=== PATIENT | female | born 1955 | race Caucasian/White ===

== ENCOUNTER 2017-12-08 10:41 | Inpatient (IN) | payer OTHER ==
[2017-12-08] VITALS (11 sets, daily range): BP systolic 115–165; BP diastolic 73–99
[~2017-12-08] VITALS: Ht 165.1 cm; Wt 77.0 kg
[2017-12-08 11:15] LABS: BASOPHILS % (AUTO) 0.4 % (0.0-5.0); EOSINOPHILS % (AUTO) 0.3 % (0.0-8.0); HEMATOCRIT 39.2 % (36-48); MEAN CORPUSCULAR HEMOGLOBIN 28.9 pg (27.0-33.0); MEAN CORPUSCULAR HGB CONC 34.6 g/dL (32.0-36.0); MEAN CORPUSCULAR VOLUME 83.7 fL (79-99); NEUTROPHILS % (AUTO) 83.3 % (40.0-77.0); PLATELET COUNT (AUTO) 299 K/uL (130-400); RED BLOOD CELL COUNT(AUTO) 4.68 MIL/uL (4.00-5.50); RED CELL DISTRIBUTION WIDTH 13.9 % (11.0-15.5); WHITE BLOOD COUNT (AUTO) 18.9 K/uL (4.8-10.8)
[2017-12-08 11:20] LABS: CREATININE 0.8 mg/dL (0.5-1.5); POTASSIUM 4.3 mmol/L (3.5-5.1)
[2017-12-08 11:26] LABS: INR 0.9 (0.85-1.15); PROTHROMBIN TIME 9.5 SEC (9.6-11.6)
[2017-12-08 11:35] LABS: ALBUMIN 3.5 g/dL (3.5-5.0); BILIRUBIN,TOTAL 0.3 mg/dL (0.2-1.0); CREATINE KINASE MB 180.8 ng/mL (0.5-3.6); TOTAL PROTEIN, SERUM 7.3 g/dL (6.0-8.3)
[2017-12-08] MEDS ORDERED: ASPIRIN 325 MG TABLET ONE (11:44)
[2017-12-08] MEDS ORDERED: ONDANSETRON HCL 4 MG/2 ML VIAL ONE (11:44)
[2017-12-08] MEDS ORDERED: SODIUM CHLORIDE 0.9% 500ML 500 ML IV ONE (12:11)
[2017-12-08] MEDS ORDERED: SODIUM CHLORIDE 0.9% 1000ML 1,000 ML IV ONE (13:17)
[2017-12-08] MEDS ORDERED: ISOVUE-370 50ML VIAL IV ONE (13:24)
[2017-12-08] MEDS ORDERED: IOPAMIDOL-370 75 ML VIAL IV ONE (13:24)
[2017-12-08] MEDS ORDERED: BIVALIRUDIN 250 MG/VIAL IV ONE (13:24)
[2017-12-08] MEDS ORDERED: NITROGLYCERIN 5 MG/ML 10 ML VIAL IV ONE (13:24)
[2017-12-08] MEDS ORDERED: LIDOCAINE HCL 2% 20ML ONE (13:25)
[2017-12-08] MEDS ORDERED: MIDAZOLAM HCL 1 MG/ML 2ML VIAL ONE ×2 (13:35→14:02)
[2017-12-08] MEDS ORDERED: HEPARIN SODIUM 1000UNIT/ML 10ML VIAL ONE (14:02)
[2017-12-08] MEDS ORDERED: CLOPIDOGREL BISULFATE 300 MG TAB ONE (14:02)
[2017-12-08] MEDS ORDERED: PRASUGREL HCL 10 MG TABLET ONE (14:05)
[2017-12-08] MEDS ORDERED: EPTIFIBATIDE 2 MG/ML 10 ML VIAL IVP ONE (14:20)
[2017-12-08] MEDS ORDERED: FENTANYL CITRATE PF 50 MCG/1 ML 2ML VIAL ONE (14:46)
[2017-12-08] MEDS: SODIUM CHLORIDE 0.9% 1000ML 1,000 ML IV SCH (15:03)
[2017-12-08] MEDS ORDERED: ONDANSETRON HCL 4 MG/2 ML VIAL IVP PRN (15:15)
[2017-12-08] MEDS ORDERED: PRASUGREL HCL 10 MG TABLET PO SCH (15:15)
[2017-12-08] MEDS ORDERED: VERA-6 PO (16:19)
[2017-12-08] MEDS ORDERED: ALPR1TAB2 PO (16:19)
[2017-12-08 16:27] LABS: TROPONIN I 28.07 ng/mL (0.00-0.06)
[2017-12-08] MEDS: LISINOPRIL 5 MG TABLET PO SCH (16:43)
[2017-12-08] MEDS: TRAMADOL HCL 50 MG TABLET PO PRN (16:45)
[2017-12-08] MEDS: ATORVASTATIN CALCIUM 40 MG TABLET PO SCH (21:01)
[2017-12-08] MEDS: METOPROLOL TARTRATE 25 MG TAB PO SCH (21:01)
[2017-12-08] MEDS ORDERED: MORPHINE SULFATE 2 MG/ML 1ML SYG IVP PRN (22:00)
[2017-12-08] MEDS ORDERED: MORPHINE SULFATE 4 MG/1ML SYG ONE (22:22)
[2017-12-08 23:34] LABS: APPEARANCE,URINE Clear (CLEAR); BILIRUBIN,URINE Negative (NEGATIVE); COLOR,URINE Yellow (YELLOW); GLUCOSE, URINE (UA) Negative (NEGATIVE); KETONES,URINE Negative (NEGATIVE); LEUKOCYTE ESTERASE ,URINE Negative (NEGATIVE); NITRATE,URINE Negative (NEGATIVE); OCCULT BLOOD,URINE Nonhemolyzed Trace (NEGATIVE); PH,URINE 6.5 (5.0-8.0); PROTEIN,URINE Negative (NEGATIVE)
[2017-12-08 23:46] LABS: WBC,URINE 0-1 /HPF (0-1)
[2017-12-08 23:47] LABS: BACTERIA,URINE Rare /HPF (None Seen)
[2017-12-09] MEDS: SODIUM CHLORIDE 0.9% 1000ML 1,000 ML IV SCH ×3 (00:45→10:45)
[2017-12-09] MEDS ORDERED: ACETAMINOPHEN 325 MG TAB PO PRN ×2 (00:45)
[2017-12-09] MEDS ORDERED: POTASSIUM CHLORIDE 10% ELIXIR 20 MEQ/15 ML UDCUP PO PRN (00:45)
[2017-12-09] MEDS ORDERED: POTASSIUM CHLORIDE 20MEQ/100ML 100 ML IV PRN (00:45)
[2017-12-09] MEDS ORDERED: LIDOCAINE HCL-MPF 1% 2ML VIAL IVP PRN (00:45)
[2017-12-09] MEDS ORDERED: POTASSIUM CHLORIDE 20 MEQ ERTAB PO PRN (00:45)
[2017-12-09] MEDS ORDERED: MAGNESIUM 2GM PREMIX 50ML 50 ML IV PRN (00:45)
[2017-12-09] MEDS: TRAMADOL HCL 50 MG TABLET PO PRN (00:54)
[2017-12-09] MEDS: ALPRAZOLAM 1 MG TAB PO PRN ×3 (00:55→21:38)
[2017-12-09 01:03] LABS: CREATINE KINASE MB 222.4 ng/mL (0.5-3.6)
[2017-12-09 01:06] LABS: TROPONIN I 32.25 ng/mL (0.00-0.06)
[2017-12-09 03:50] LABS: BASOPHILS % (AUTO) 0.3 % (0.0-5.0); EOSINOPHILS % (AUTO) 0.4 % (0.0-8.0); HEMATOCRIT 36.1 % (36-48); LYMPHOCYTES % (AUTO) 20.7 % (21.0-51.0); MEAN CORPUSCULAR HEMOGLOBIN 28.2 pg (27.0-33.0); MEAN CORPUSCULAR HGB CONC 33.4 g/dL (32.0-36.0); MEAN CORPUSCULAR VOLUME 84.3 fL (79-99); MONOCYTES % (AUTO) 5.7 % (3.0-13.0); NEUTROPHILS % (AUTO) 72.9 % (40.0-77.0); PLATELET COUNT (AUTO) 264 K/uL (130-400); RED BLOOD CELL COUNT(AUTO) 4.28 MIL/uL (4.00-5.50); RED CELL DISTRIBUTION WIDTH 13.9 % (11.0-15.5); WHITE BLOOD COUNT (AUTO) 16.4 K/uL (4.8-10.8)
[2017-12-09 04:04] LABS: CREATININE 0.7 mg/dL (0.5-1.5); MAGNESIUM 1.9 mg/dL (1.80-2.40); PHOSPHORUS 3.2 mg/dL (2.5-4.9); POTASSIUM 4.1 mmol/L (3.5-5.1)
[2017-12-09 04:22] VITALS: BP 110/62
[2017-12-09 07:20] VITALS: BP 127/67
[2017-12-09] MEDS ORDERED: ATOR40TA69 PO (08:34)
[2017-12-09] MEDS ORDERED: VARE1TAB21 PO (08:34)
[2017-12-09] MEDS ORDERED: LISI-617 PO (08:34)
[2017-12-09] MEDS ORDERED: ASPI-1005 PO (08:34)
[2017-12-09] MEDS ORDERED: METO-391 PO (08:34)
[2017-12-09] MEDS ORDERED: PRAS10TA6 PO (08:34)
[2017-12-09] MEDS: FAMOTIDINE 20MG TAB 20 MG TAB PO SCH ×2 (10:13→20:32)
[2017-12-09] MEDS: PRASUGREL HCL 10 MG TABLET PO SCH (10:13)
[2017-12-09] MEDS: METOPROLOL TARTRATE 25 MG TAB PO SCH ×2 (10:15→20:32)
[2017-12-09] MEDS: LISINOPRIL 5 MG TABLET PO SCH (10:15)
[2017-12-09] MEDS: ASPIRIN 81MG TAB.CHEW PO SCH (10:16)
[2017-12-09] MEDS: NICOTINE 14 MG/ 24 HR PATCH TD SCH (10:19)
[2017-12-09 12:05] VITALS: BP 114/72
[2017-12-09 15:35] VITALS: BP 117/52
[2017-12-09] MEDS ORDERED: MORPHINE SULFATE 4 MG/1ML SYG IVP PRN (17:09)
[2017-12-09 19:30] VITALS: BP 131/60
[2017-12-09] MEDS: ATORVASTATIN CALCIUM 40 MG TABLET PO SCH (20:32)
[2017-12-09 23:41] VITALS: BP 123/45
[2017-12-10 03:52] LABS: BASOPHILS % (AUTO) 0.6 % (0.0-5.0); EOSINOPHILS % (AUTO) 1.7 % (0.0-8.0); HEMATOCRIT 36.7 % (36-48); LYMPHOCYTES % (AUTO) 21.1 % (21.0-51.0); MEAN CORPUSCULAR HEMOGLOBIN 28.3 pg (27.0-33.0); MEAN CORPUSCULAR HGB CONC 33.4 g/dL (32.0-36.0); MEAN CORPUSCULAR VOLUME 84.7 fL (79-99); MONOCYTES % (AUTO) 5.8 % (3.0-13.0); NEUTROPHILS % (AUTO) 70.8 % (40.0-77.0); PLATELET COUNT (AUTO) 217 K/uL (130-400); RED BLOOD CELL COUNT(AUTO) 4.33 MIL/uL (4.00-5.50); WHITE BLOOD COUNT (AUTO) 13.5 K/uL (4.8-10.8)
[2017-12-10 03:56] VITALS: BP 129/76
[2017-12-10 04:02] LABS: CREATININE 0.8 mg/dL (0.5-1.5); MAGNESIUM 1.9 mg/dL (1.80-2.40)
[2017-12-10 07:20] VITALS: BP 144/81
[2017-12-10] MEDS: ASPIRIN 81MG TAB.CHEW PO SCH (09:02)
[2017-12-10] MEDS: FAMOTIDINE 20MG TAB 20 MG TAB PO SCH (09:02)
[2017-12-10] MEDS: PRASUGREL HCL 10 MG TABLET PO SCH (09:02)
[2017-12-10] MEDS: ALPRAZOLAM 1 MG TAB PO PRN (09:02)
[2017-12-10] MEDS: METOPROLOL TARTRATE 25 MG TAB PO SCH (09:03)
[2017-12-10] MEDS: LISINOPRIL 5 MG TABLET PO SCH (09:03)
[2017-12-10] MEDS: NICOTINE 14 MG/ 24 HR PATCH TD SCH (09:03)
== END 2017-12-10 11:25 | disposition home or self-care (01) | DRG 247 ==
LOC: EDH 10:41 → EDHIP 10:42 → 2CH 14:25 → 2DH 12-09 02:31
PROVIDERS: ADMIT Internal Medicine Nephrology; ATTEND Internal Medicine Nephrology
PROC: 027034Z Dilation of Coronary Artery, One Artery with Drug-eluting Intraluminal Device, Percutaneous Approach (ICD-10-PCS; principal; 2017-12-08)
PROC: 4A023N7 Measurement of Cardiac Sampling and Pressure, Left Heart, Percutaneous Approach (ICD-10-PCS; 2017-12-08)
PROC: B2111ZZ Fluoroscopy of Multiple Coronary Arteries using Low Osmolar Contrast (ICD-10-PCS; 2017-12-08)
PROC: B2151ZZ Fluoroscopy of Left Heart using Low Osmolar Contrast (ICD-10-PCS; 2017-12-08)
DX: I21.4 Non-ST elevation (NSTEMI) myocardial infarction (principal); F17.210 Nicotine dependence, cigarettes, uncomplicated; I25.10 Atherosclerotic heart disease of native coronary artery without angina pectoris; I10 Essential (primary) hypertension; I49.3 Ventricular premature depolarization; I25.5 Ischemic cardiomyopathy; I73.9 Peripheral vascular disease, unspecified; Z82.49 Family history of ischemic heart disease and other diseases of the circulatory system; Z83.3 Family history of diabetes mellitus; Z90.49 Acquired absence of other specified parts of digestive tract; Z90.710 Acquired absence of both cervix and uterus; Z91.19 Patient's noncompliance with other medical treatment and regimen; Z88.5 Allergy status to narcotic agent; Z88.8 Allergy status to other drugs, medicaments and biological substances
CPT/HCPCS: 36415; 71045; 80048; 80053; 80061; 81001; 82550; 82553; 83735; 83874; 84100; 84484; 85025; 85347; 85610; 85730; 93005; 93306; 93458; 99156; 99157; C1725; C1760; C1769; C1887; C1894; C9606; J0583; J1327; J1644; J2250; J2270; J2405; J3010; J3475; J3490; J7030; J7040; Q9967

== ENCOUNTER 2019-03-08 13:14 | Emergency (ER) | payer SELFPAY ==
[~2019-03-08 13:14] MED LIST: ALPR1TAB2 PO; ASPI-1005 PO; ATOR40TA69 PO; LISI-617 PO; METO-391 PO; PRAS10TA6 PO; VARE1TAB21 PO
[2019-03-08] MEDS ORDERED: ASPIRIN 325 MG TABLET ONE (13:34)
[2019-03-08] MEDS ORDERED: SODIUM CHLORIDE 0.9% 1000ML 1,000 ML IV ONE (13:46)
[2019-03-08] MEDS ORDERED: ONDANSETRON HCL 4 MG/2 ML VIAL ONE (13:46)
[2019-03-08 13:49] LABS: BASOPHILS % (AUTO) 0.3 % (0.0-5.0); LYMPHOCYTES % (AUTO) 20.1 % (21.0-51.0); MEAN CORPUSCULAR HEMOGLOBIN 27.5 pg (27.0-33.0); MEAN CORPUSCULAR HGB CONC 33.2 g/dL (32.0-36.0); MEAN CORPUSCULAR VOLUME 83.1 fL (79-99); MONOCYTES % (AUTO) 5.6 % (3.0-13.0); PLATELET COUNT (AUTO) 298 K/uL (130-400); RED BLOOD CELL COUNT(AUTO) 5.41 MIL/uL (4.00-5.50); WHITE BLOOD COUNT (AUTO) 12.4 K/uL (4.8-10.8)
[2019-03-08 14:02] LABS: INR 0.96 (0.85-1.15); PARTIAL THROMBOPLASTIN TIME 24.5 SEC (26.3-35.5); PROTHROMBIN TIME 10.1 SEC (9.6-11.6)
[2019-03-08 14:07] LABS: ALBUMIN 3.6 g/dL (3.5-5.0); BILIRUBIN,TOTAL 0.6 mg/dL (0.2-1.0); POTASSIUM 3.2 mmol/L (3.5-5.1); TOTAL PROTEIN, SERUM 7.8 g/dL (6.0-8.3)
[2019-03-08 14:29] LABS: B-TYPE NATRIURETIC PEPTIDE 30 pg/mL (0-100)
== END 2019-03-08 16:09 | disposition home or self-care (01) ==
LOC: EDH 13:14
DX: I71.4 Abdominal aortic aneurysm, without rupture (principal); K52.9 Noninfective gastroenteritis and colitis, unspecified; R07.9 Chest pain, unspecified; I10 Essential (primary) hypertension; I25.10 Atherosclerotic heart disease of native coronary artery without angina pectoris; Z88.5 Allergy status to narcotic agent
CPT/HCPCS: 36415; 71045; 74176; 80053; 82550; 83880; 84484; 85025; 85610; 85730; 93005; 96374; 96375; 99285; J2405; J7030

== ENCOUNTER 2024-06-16 04:22 | Emergency (ER) | payer SELFPAY ==
[~2024-06-16 04:22] MED LIST changes: +ACET500P24 PO; -ATOR40TA69 PO; -LISI-617 PO; -METO-391 PO; -PRAS10TA6 PO; -VARE1TAB21 PO; +VERA120T21 PO
[2024-06-16 04:23] VITALS: BP 0/0; PULSE 0; RESP 0
[2024-06-16] MEDS ORDERED: CACL 1GM SYG IVP ONE (04:23)
--- NOTE | 2024-06-16 04:36 | ERN ---
ED Note History of Present Illness Stated Complaint: CARDIAC ARREST Chief Complaint: CPR/Full Arrest Time Seen by MD: 04:32 Allergies: Coded Allergies: codeine (Verified Allergy, Unknown, 12/08/17) Home Meds Active Scripts Aspirin (ASPIRIN 81MG CHEW TAB) 81 Mg Tab.chew, 81 MG PO DAILY for 90 Days, #90 TAB.CHEW 3 Refills Prov:MONTANA MARIN MD 12/09/17 Reported Medications Acetaminophen (Tylenol Extra Strength) 500 Mg Powd.pack, 500 MG PO TID 01/25/22 Verapamil HCl (Calan/Isoptin) 120 Mg Tab, 120 MG PO TID, TAB 01/25/22 Alprazolam (Xanax) 1 Mg Tablet, 1 MG PO TID, TAB 12/08/17 Past Medical History Dictation 68-year-old female with unknown past medical history presents via EMS after witnessed cardiac arrest. The patient's family states that approximately three on patient collapsed. EMS states that the patient was in pea a upon arrival. They did multiple rounds of CPR without change in rhythm. Patient was transferred to the emergency department for further evaluation. EMS is estimated down time was approximately 1 hour Past Medical History: Heart Disease, Hypertension, [place] Surgical History: Unknown Social History: Smokers, Lives with family History: Not Applicable Review of System Dictation See HPI Physical Exam Dictation Chronically ill-appearing, acutely weak appearing, intubated, bag-valve mask, Justice device , CPR in progress, no responsiveness, no movement x4 extremities, abdomen nondistended, abdomen soft Medical Decision Making MDM Ddx: PE versus acid versus surveillance versus hypoxia versus hypothermia versus hypovolemia versus cardiac arrest Patient was down approximately 1 hour prior to arrival to the emergency department. Patient given CPR Justice device. Patient was also found to be hypoglycemic. Patient given multiple amps of dextrose. Multiple amps of bicarb, patient given calcium. CPR performed for several rounds with no improvement. Time of the 430 Critical Care Note Critical Time: 30 minutes DX & DISP Disposition: Departure Impression: Primary Impression: Cardiac arrest Condition: Referrals: TRINI SPEARS DO (PCP) MADI VIZCARRA DO Jun 16, 2024 04:36
--- NOTE | 2024-06-16 06:13 | NUR ---
SEE CODE SHEET
== END 2024-06-16 04:31 ==
LOC: EDH 04:22
DX: I46.9 Cardiac arrest, cause unspecified (principal); F17.200 Nicotine dependence, unspecified, uncomplicated; I10 Essential (primary) hypertension; Z79.82 Long term (current) use of aspirin; Z79.899 Other long term (current) drug therapy; Z88.5 Allergy status to narcotic agent
CPT/HCPCS: 99285; 92950; J7070; J0171; J3490 ×2